=== PATIENT | male | born 1985 | race African-American/Black ===

== ENCOUNTER 2016-11-26 21:48 | Emergency (ER) | payer OTHER ==
[2016-11-27] MEDS ORDERED: LIDOCAINE 1% 2 ML VIAL ONE ×2 (00:01→00:10)
[2016-11-27] MEDS ORDERED: BACITRACIN OINT TOP STA (01:18)
[2016-11-27] MEDS ORDERED: TETANUS/DIPHTHERIA/PERTUSSIS 0.5 ML SYRINGE IM ONE ×2 (01:19→01:27)
[2016-11-27] MEDS ORDERED: BACITRACIN OINT TOP ONE (01:25)
== END 2016-11-27 01:38 | disposition home or self-care (01) ==
DX: S01.81XA Laceration without foreign body of other part of head, initial encounter (principal); W50.0XXA Accidental hit or strike by another person, initial encounter; Y93.67 Activity, basketball; Y92.310 Basketball court as the place of occurrence of the external cause; Z23 Encounter for immunization
CPT/HCPCS: 12011; 90471; 90715; 99282; A9270